=== PATIENT | female | born 1980 | race Caucasian/White ===

== ENCOUNTER → 2019-03-16 | Outpatient (CLI) | payer OTHER | END | disposition home or self-care (01) | LOC: LAB 15:00 → LAB SHORT 15:00 | PROVIDERS: Nurse Practitioner | DX: Z01.419 Encounter for gynecological examination (general) (routine) without abnormal findings (principal) | CPT/HCPCS: G0145 ==

== ENCOUNTER → 2023-04-01 | Outpatient (CLI) | payer OTHER ==
[2023-04-05 18:09] LABS: IMMUNOGLOBULIN A, QN, SERUM 228 mg/dL (87-352); T-TRANSGLUTAMINASE (TTG) IGA 18 U/mL (0-3); T-TRANSGLUTAMINASE (TTG) IGG 15 U/mL (0-5)
== END ==
LOC: LAB SHORT 16:30 → LAB 16:30
PROVIDERS: Family Medicine
DX: R14.0 Abdominal distension (gaseous) (principal); R31.29 Other microscopic hematuria
CPT/HCPCS: 82784; 83516; 86258; 86364; 87086

== ENCOUNTER → 2023-08-20 | Outpatient (CLI) | payer OTHER | LOC: LAB SHORT 13:50 → LAB EV 13:50 | PROVIDERS: Family Medicine | DX: Z01.419 Encounter for gynecological examination (general) (routine) without abnormal findings (principal) | CPT/HCPCS: G0123 ==

== ENCOUNTER 2024-03-04 10:39 | Day surgery (SDC) | payer OTHER ==
[~2024-03-04] VITALS: Ht 162.6 cm; Wt 65.9 kg
[~2024-03-04 10:39] MED LIST: Atropine Sulfate 0.1 MG/ML 10ML SYR ONE; Glycopyrrolate 0.2 MG/ML 1MLVIAL ONE; Lactated Ringer's 1,000 ML IV ONE; Lidocaine 2% 5 ML SDV ONE; Lidocaine HCl/Pf 1% 5 ML VIAL ONE; Methylene Blue 1% 100 MG/10 ML VIAL ONE; Ondansetron HCl 2 MG / ML 2ML Vial ONE; ePHEDrine Sulfate 50 MG/ML 1ML Injection ONE; propofoL 50 ML IV ONE
[2024-03-04] MEDS ORDERED: Lactated Ringer's 1,000 ML IV ONE (12:31)
[2024-03-04 14:27] VITALS: BP 109/67
[2024-03-06 03:42] LABS: TISSUE TRANSGLUTAMINAS TTG,IGA 3.85 FLU (0.00-4.99)
== END 2024-03-04 14:27 | disposition home or self-care (01) ==
LOC: ORSCSDS 10:39
PROVIDERS: Internal Medicine Gastroenterology
PROC: 0DB98ZX Excision of Duodenum, Via Natural or Artificial Opening Endoscopic, Diagnostic (ICD-10-PCS; principal; 2024-03-04 12:15)
DX: K90.0 Celiac disease (principal)
CPT/HCPCS: 86364; 88305; J0461; J2003; J2405; J2704; J7120; Q9968